=== PATIENT | male | born 2005 | race Caucasian/White ===

== ENCOUNTER 2024-09-26 22:21 | Emergency (ER) | payer SELFPAY ==
[2024-09-26] MEDS ORDERED: diphenhydrAMINE 25 MG CAP ONE (22:35)
[2024-09-26] MEDS ORDERED: predniSONE 20 MG TAB ONE (22:35)
== END 2024-09-26 22:39 | disposition home or self-care (01) ==
LOC: NAV ERS 22:21
DX: T78.1XXA Other adverse food reactions, not elsewhere classified, initial encounter (principal)
CPT/HCPCS: 99282; J7512